=== PATIENT | male | born 1970 | race Caucasian/White ===

== ENCOUNTER → 2016-05-07 | Outpatient (CLI) | payer BC ==
[~2016-05-07] MED LIST: CELEBREX 200 M200 MG PO; CYCLOBENZAPRINE10 MG PO; IBUPROFEN 200200 M1 PO; NORCO 10-325 T1 EACH PO; NORCO 5-325 TA1 EACH PO
== END ==
LOC: RAD 09:36
DX: M47.816 Spondylosis without myelopathy or radiculopathy, lumbar region (principal); M54.5 Low back pain